=== PATIENT | male | born 1940 | race Caucasian/White ===

== ENCOUNTER → 2021-06-20 | Outpatient (CLI) | payer MEDICARE, OTHER ==
--- NOTE | 2021-06-20 16:14 | Diagnostic Imaging Report ---
PROCEDURE: MR imaging of the brain without contrast. TECHNIQUE: Multiplanar, multisequence MR imaging of the brain was performed without contrast. INDICATION: Memory problems. COMPARISON: None. FINDINGS: No acute ischemia, mass, or hemorrhage. A small amount of chronic microvascular disease is seen in the periventricular and subcortical white matter. The ventricles and cortical sulci are diffusely prominent. The basilar cisterns are symmetric and unremarkable. The sellar and suprasellar regions have a normal appearance. The brainstem and posterior fossa are unremarkable. The paranasal sinuses and mastoid air cells demonstrate normal signal characteristics. Bilateral lens implants are noted. The scalp and calvarium have a normal appearance. IMPRESSION: 1. No acute ischemia, mass, or hemorrhage. 2. Generalized parenchymal volume loss. 3. Small amount of scattered chronic microvascular disease. Dictated by: Dictated on workstation # [id number]
== END ==
LOC: RAD 13:15
PROVIDERS: ATTEND Family Medicine
DX: G31.9 Degenerative disease of nervous system, unspecified (principal)
CPT/HCPCS: 70551

== ENCOUNTER → 2021-10-29 | Outpatient (CLI) | payer MEDICARE, OTHER ==
[2021-10-29 10:05] LABS: CREATININE SERUM 0.99 MG/DL (0.60-1.30); POTASSIUM 3.9 MMOL/L (3.6-5.0)
[2021-10-29 10:06] LABS: BILIRUBIN,TOTAL 0.7 MG/DL (0.1-1.0); CALCIUM 10.3 MG/DL (8.5-10.1)
[2021-10-29 10:07] LABS: TOTAL PROTEIN 6.9 GM/DL (6.4-8.2)
== END ==
LOC: RAD FS 09:21
PROVIDERS: ATTEND Family Medicine
DX: R41.3 Other amnesia (principal)
CPT/HCPCS: 36415; 80053

== ENCOUNTER 2022-07-18 09:30 | Emergency (ER) | payer MEDICARE, OTHER ==
[~2022-07-18] VITALS: Ht 167.7 cm; Wt 77.2 kg
[2022-07-18 09:45] LABS: BASOPHILS # (AUTO) 0.1 10^3/uL (0.0-0.1); BASOPHILS % (AUTO) 1 % (0-10); BILIRUBIN,URINE NEGATIVE (NEGATIVE); CLARITY,URINE CLEAR; COLOR,URINE YELLOW; EOSINOPHILS # (AUTO) 0.1 10^3/uL (0.0-0.3); EOSINOPHILS % (AUTO) 2 % (0-10); GLUCOSE, URINE (UA) NEGATIVE (NEGATIVE); HEMATOCRIT 44 % (40-54); HEMOGLOBIN 15.8 g/dL (13.3-17.7); KETONES,URINE NEGATIVE (NEGATIVE); LEUKOCYTE ESTERASE ,URINE TRACE (NEGATIVE); LYMPHOCYTES # (AUTO) 1.7 10^3/uL (1.0-4.0); LYMPHOCYTES % (AUTO) 24 % (12-44); MEAN CORPUSCULAR HEMOGLOBIN 33 pg (25-34); MEAN CORPUSCULAR HGB CONC 36 g/dL (32-36); MEAN CORPUSCULAR VOLUME 93 fL (80-99); MEAN PLATELET VOLUME 9.5 fL (9.0-12.2); MONOCYTES # (AUTO) 0.6 10^3/uL (0.0-1.0); MONOCYTES % (AUTO) 9 % (0-12); NEUTROPHILS # (AUTO) 4.7 10^3/uL (1.8-7.8); NEUTROPHILS % (AUTO) 65 % (42-75); NITRITE,URINE NEGATIVE (NEGATIVE); PLATELET COUNT 165 10^3/uL (130-400); PROTEIN,URINE NEGATIVE (NEGATIVE); WHITE BLOOD COUNT 7.3 10^3/uL (4.3-11.0)
[2022-07-18 09:54] LABS: BACTERIA,URINE FEW /HPF; RBC,URINE 50-100 /HPF
--- NOTE | 2022-07-18 09:56 | ED GU-Male ---
General Chief Complaint: - Reproductive Stated Complaint: BLOOD IN URINE, RIGHT SIDE PAIN Source: patient, spouse Exam Limitations: no limitations History of Present Illness Date Seen by Provider: Jul 18, 2022 Time Seen by Provider: 09:37 Initial Comments 82-year-old male presenting with his to the emergency department due to concerns for blood in his urine and right-sided abdominal pain. He had woke up at 3 AM and had blood in his urine as well as incontinence of urine. He had pain in the right side and flank. These things have improved since it woke him up at 3 AM. His urine is much more clear now and the pain has resolved. He does have problems with urination but has not had blood with incontinence like this morning before today. He had some burning and discomfort with urination but that has also improved. He denies any history of having problems with his bladder or prostate. The was concerned that he has never had evaluation of his prostate and bladder before today. He did not have fever, chills, chest pain, nausea, vomiting, diarrhea, change in his bowels. he does take Xarelto as a blood thinner. Timing/Duration: this morning Severity/Quality: moderate, sharp Location: right flank Radiation: right flank Activities at Onset: sleep Prior Genitourinary Problems: none Sexual [place] History: not active Associated Symptoms: No diaphoresis; dysuria; No fever/chills; loss of bladder control; No lower back pain, No lumps, No mass, No nausea/vomiting, No nocturia, No polyuria, No swelling, No syncope; urinary frequency Allergies and Home Medications Allergies Coded Allergies: No Known Drug Allergies (Unverified , 07/18/22) Patient Home Medication List Home Medication List Reviewed: Yes Ciprofloxacin HCl (Ciprofloxacin HCl) 250 Mg Tablet, 250 MG PO BID Prescribed by: JOSE SALAZAR on 07/18/22 1005 Hydrocodone/Acetaminophen (Hydrocodone-Acetamin 5-325 mg) 5 Mg-325 Mg Tablet, 1 TAB PO Q4H PRN for PAIN SEVERE Prescribed by: JOSE SALAZAR on 07/18/22 1153 Review of Systems Review of Systems Constitutional: No chills, No dizziness, No fever EENTM: no symptoms reported Respiratory: no symptoms reported Cardiovascular: no symptoms reported Gastrointestinal: see HPI Genitourinary: see HPI Musculoskeletal: no symptoms reported Skin: no symptoms reported Psychiatric/Neurological: No Symptoms Reported Past Tntzrfz-Hpgscz-Qwcmop Hx Patient Social History Tobacco Use?: No Use of E-Cig and/or Vaping dev: No Substance use?: No Alcohol Use?: No Past Medical History Surgery/Hospitalization HX: Dementia, Factor V Leiden Deficiency Physical Exam Vital Signs Vital Signs - First Documented 07/18/22 09:33 Temp 37.1 Pulse 65 Resp 16 B/P (MAP) 149/71 (97) Pulse Ox 98 O2 Delivery Room Air Capillary Refill : Height, Weight, BMI Height: '" Weight: lbs. oz. kg; BMI Method: General Appearance: WD/WN, no apparent distress HEENT: PERRL/EOMI, pharynx normal Neck: non-tender, full range of motion, supple, normal inspection Cardiovascular: normal peripheral pulses, regular rate, rhythm Respiratory: chest non-tender, lungs clear, normal breath sounds Gastrointestinal: normal bowel sounds, non tender, soft, no pulsatile mass Rectal: deferred Back: no CVA tenderness Extremities: normal range of motion, non-tender, normal capillary refill Neurologic/Psychiatric: alert, oriented x 3 Skin: normal color, warm/dry Progress/Results/Core Measures Suspected Sepsis SIRS Temperature: Pulse: Respiratory Rate: Laboratory Tests 07/18/22 09:43: White Blood Count 7.3 Blood Pressure / Mean: Laboratory Tests 07/18/22 09:43: Creatinine 1.27, Platelet Count 165, Total Bilirubin 1.2H Results/Orders Lab Results Laboratory Tests Test 07/18/22 09:43 Range/Units White Blood Count 7.3 4.3-11.0 10^3/uL Red Blood Count 4.73 4.30-5.52 10^6/uL Hemoglobin 15.8 13.3-17.7 g/dL Hematocrit 44 40-54 % Mean Corpuscular Volume 93 80-99 fL Mean Corpuscular Hemoglobin 33 25-34 pg Mean Corpuscular Hemoglobin Concent 36 32-36 g/dL Red Cell Distribution Width 12.9 10.0-14.5 % Platelet Count 165 130-400 10^3/uL Mean Platelet Volume 9.5 9.0-12.2 fL Immature Granulocyte % (Auto) 0 % Neutrophils (%) (Auto) 65 42-75 % Lymphocytes (%) (Auto) 24 12-44 % Monocytes (%) (Auto) 9 0-12 % Eosinophils (%) (Auto) 2 0-10 % Basophils (%) (Auto) 1 0-10 % Neutrophils # (Auto) 4.7 1.8-7.8 10^3/uL Lymphocytes # (Auto) 1.7 1.0-4.0 10^3/uL Monocytes # (Auto) 0.6 0.0-1.0 10^3/uL Eosinophils # (Auto) 0.1 0.0-0.3 10^3/uL Basophils # (Auto) 0.1 0.0-0.1 10^3/uL Immature Granulocyte # (Auto) 0.0 0.0-0.1 10^3/uL Urine Color YELLOW Urine Clarity CLEAR Urine pH 6.0 5-9 Urine Specific [place] 1.020 1.016-1.022 Urine Protein NEGATIVE NEGATIVE Urine Glucose (UA) NEGATIVE NEGATIVE Urine Ketones NEGATIVE NEGATIVE Urine Nitrite NEGATIVE NEGATIVE Urine Bilirubin NEGATIVE NEGATIVE Urine Urobilinogen 0.2 < = 1.0 MG/DL Urine Leukocyte Esterase TRACE H NEGATIVE Urine RBC (Auto) 2+ H NEGATIVE Urine RBC 50-100 H /HPF Urine WBC 5-10 H /HPF Urine Crystals NONE /LPF Urine Bacteria FEW H /HPF Urine Casts NONE /LPF Urine Mucus MODERATE H /LPF Urine Culture Indicated YES Sodium Level 141 135-145 MMOL/L Potassium Level 4.1 3.6-5.0 MMOL/L Chloride Level 105 98-107 MMOL/L Carbon Dioxide Level 27 21-32 MMOL/L Anion Gap 9 5-14 MMOL/L Blood Urea Nitrogen 15 7-18 MG/DL Creatinine 1.27 0.60-1.30 MG/DL Estimat Glomerular Filtration Rate 56 BUN/Creatinine Ratio 12 Glucose Level 107 H 70-105 MG/DL Calcium Level 11.1 H 8.5-10.1 MG/DL Corrected Calcium 11.0 H 8.5-10.1 MG/DL Total Bilirubin 1.2 H 0.1-1.0 MG/DL Aspartate Amino Transf (AST/SGOT) 22 5-34 U/L Alanine Aminotransferase (ALT/SGPT) 12 0-55 U/L Alkaline Phosphatase 81 40-136 U/L Total Protein 7.1 6.4-8.2 GM/DL Albumin 4.1 3.2-4.5 GM/DL Lipase 26 8-78 U/L My Orders Orders - JOSE SALAZAR MD Comprehensive Metabolic Panel (07/18/22 09:40) Lipase (07/18/22 09:40) Ua Culture If Indicated (07/18/22 09:40) Ed Iv/Invasive Line Start (07/18/22 09:40) Cbc With Automated Diff (07/18/22 09:40) Ct Abd/Pelvis Wo(Kidney Stone) (07/18/22 09:49) Urine Culture (07/18/22 09:43) Ceftriaxone 1 Gm Pre-Mix (Rocephin 1 Gm (07/18/22 10:00) Ns Iv 500 Ml (Sodium Chloride 0.9%) (07/18/22 10:00) Strain Urine (07/18/22 10:21) Vital Signs/I&O 07/18/22 07/18/22 09:33 12:06 Temp 37.1 Pulse 65 56 Resp 16 B/P (MAP) 149/71 (97) 174/77 Pulse Ox 98 96 O2 Delivery Room Air Room Air Capillary Refill : Progress Note #1: Progress Note Potential diagnosis of kidney stone, urinary tract infection, pyelonephritis, diverticulitis, colitis, bladder mass, hematuria on Xarelto. Obtain peripheral IV access and draw blood for complete blood count, lipase, comprehensive metabolic profile. Ordered urinalysis to look for signs of infection and hematuria. CT scan of the abdomen and pelvis to look for possible kidney stone or pathology to account for his symptoms. At this point with him not having any pain in the urine getting more clear will defer medications unless he has a change here in the emergency department. If he has recurrent pain will administer Toradol 15 mg IV x1 and normal saline 1 L IV fluid bolus for hydration. Progress Note #2: Time: 09:57 Progress Note Urinalysis shows mild elevation of specific gravity to 1.020 for mild dehydration. He has trace Leukocyte Esterace with bacteria and 5-10 WBC as well as 2+ RBC with 50-100 RBC/hpf. This would go with a urinary tract infection and being on xarelto it will make it easier for him to have hematuria. Will administer Rocephin 1 gm IV for UTI and Normal Saline 500 mL IVF bolus for hydration. Will see what his metabolic profile shows as well as CT scan of abdomen/pelvis without contrast to evaluate for kidney stone. Progress Note #3: Time: 10:13 Progress Note On my personal interpretation of his CT scan of abdomen/pelvis without contrast he has kidney stones in left kidney and hydroureter with distal ureteral stone 5 to 6 mm on right side. Comprehensive metabolic profile shows he does not have elevated Cr to indicate renal failure or insufficiency. Lipase and liver enzymes were not elevated to indicate pancreatitis or acute hepatic injury. Will proceed with antibiotics and encourage fluids to help get stone to pass. Give information about UTI and hematuria. Also provide information for Dr. Barnes, Urologist out of [place]. They could check with pcp and see any Urologist they wish for follow up, especially if he is not having improvement in his symptoms. Send with strainer to have him strain urine at home and see when the stone might pass. He could take Acetaminophen over the counter if needed for pain at home. For severe pain ordered Hydrocodone/Apap 5/325 mg 1 every 4 hours prn severe pain. Progress Note #4: Progress Note Radiologist had reported patient had a 7 mm kidney stone in the distal right ureter with some hydronephrosis and hydroureter. He did have some stones in both kidneys as well. I counseled patient and spouse about findings and results as well as plan to treat with the ciprofloxacin 250 mg twice a day for UTI and plain Tylenol if the pain was not severe but hydrocodone with Tylenol for severe pain. Since he does take the Xarelto he has increased risk of bleeding from the stone as well as infection. Encourage fluids and hydration to help flush out the stone as well as blood. Given information for Dr. Barnes, urologist from [place]. Also advised they could check with PCP and follow-up with urologist of their choice. He should strain all of his urine and his watch for the stone to pass. If he does not see a stone pass or continues to have pain and blood in his urine he should follow-up with urology as soon as possible. Diagnostic Imaging Diagonstic Imaging: CT Plain Films/CT/US/NM/MRI: abdomen, pelvis Comments [facility] [employer] [facility] [place], [place] NAME: JOSEPHINE CASTELLANO [facility] REC#: [id number] PT STATUS: REG ER : 1940 PHYSICIAN: JOSE SALAZAR MD ADMIT DATE: 07/18/22/ER FS Signed Date of Exam:07/18/22 CT ABD/PELVIS WO(KIDNEY STONE) EXAMINATION: CT abdomen and pelvis without contrast. TECHNIQUE: Multiple contiguous axial images were obtained through the abdomen and pelvis without the use of intravenous contrast. All CT scans use one or more of the following dose optimizing techniques: automated exposure control, MA and/or KvP adjustment based on patient size and exam type or iterative reconstruction. HISTORY: hematuria, right flank pain COMPARISON: None available. FINDINGS: Lung bases: Bibasilar dependent atelectasis. Solid organs: The liver is normal. Multiple layering hyperdense stones within the gallbladder. There is no biliary ductal dilation. Pancreas is normal. Spleen is normal. Adrenal glands are normal. There is a 0.7 cm calculus within the distal right ureter resulting in mild right hydronephrosis and hydroureter. Additional nonobstructing left renal calculi measuring up to 0.4 cm. Bowel: The stomach and small bowel are normal without obstruction. There is scattered colonic diverticulosis. The appendix is normal. Peritoneum: There is no intraperitoneal free fluid or free air. No suspicious lymphadenopathy. Vasculature: Calcification of the aorta without aneurysm. Musculoskeletal: Degenerative changes of the spine without suspicious osseous lesion or compression fracture. Pelvis: The prostate gland is enlarged. Mild diffuse bladder wall thickening. IMPRESSION: 1. A 0.7 cm calculus within the distal right ureter resulting in mild right hydronephrosis. 2. Additional nonobstructing renal calculi measuring up to 0.4 cm on the left. 3. Mild diffuse bladder wall thickening. 4. Prostatomegaly. 5. Cholelithiasis. 6. Colonic diverticulosis without findings of diverticulitis. Dictated by: Dictated on workstation # [id number] Dict: 07/18/22 1016 Trans: 07/18/22 1055 [facility] [id number] Interpreted by: YOKO CONNORS DO Electronically signed by: YOKO CONNORS DO 07/18/22 1055 Reviewed: Reviewed by Me (I reviewed the radiologist report at 1119 and agree with his interpretation.) Departure Impression Primary Impression: Renal colic on right side Additional Impressions: Hematuria Qualified Codes: R31.0 - Gross hematuria Acute cystitis with hematuria Kidney stones Disposition: 01 HOME, SELF-CARE Condition: Stable Departure-Patient Inst. Decision time for Depature: 11:51 Referrals: FRANCY PEDRO MD (PCP/Family) Primary Care Physician Patient Instructions: Blood in Urine (Hematuria), Adult ED, Urinary Tract Infection, Adult ED, Flank Pain ED, Kidney Stone, Adult ED, Kidney Stone Diet, How to Strain Your Urine Add. Discharge Instructions: Make sure you are drinking plenty of fluids and staying well hydrated. Try to keep your urine as clear and light colored as possible to help flush out infection. Take the antibiotics to treat for bladder infection. Follow up with primary care provider and if continued problems or more concerns with bladder and urine you may need referred to a Urologist for follow up and further evaluation. If you have worsening symptoms or are not improving then you could see Dr. Barnes, Urologist from [place], [place]. His office is at [address] [place], [place] [id number]. His phone number is [phone]. Take acetaminophen 650 mg every 4 hours as needed for pain. If he is having severe pain he can take the hydrocodone 5 mg with acetaminophen 325 mg pill 1 every 4 hours as needed for severe pain. Strain your urine whenever you go so that you could see when the stone passes. This may look like a small rosa of pepper or grain of sand. All discharge instructions reviewed with patient and/or family. Voiced understanding. Scripts Hydrocodone/Acetaminophen (Hydrocodone-Acetamin 5-325 mg) 5 Mg-325 Mg Tablet 1 TAB PO Q4H PRN for PAIN SEVERE for 3 Days, #18 TAB 0 Refills Prov: JOSE SALAZAR MD 07/18/22 Ciprofloxacin HCl (Ciprofloxacin HCl) 250 Mg Tablet 250 MG PO BID for UTI with hematuria for 5 Days, #10 TAB 0 Refills Prov: JOSE SALAZAR MD 07/18/22 JOSE SALAZAR MD Jul 18, 2022 09:56
[2022-07-18] MEDS ORDERED: NS IV 500 ML 500 ML IV STA (10:00)
[2022-07-18] MEDS ORDERED: cefTRIAXone 1 GM PRE-MIX 50 ML IV STA (10:00)
[2022-07-18] MEDS ORDERED: CIPR250T3 PO (10:05)
[2022-07-18 10:08] LABS: BILIRUBIN,TOTAL 1.2 MG/DL (0.1-1.0); CALCIUM 11.1 MG/DL (8.5-10.1); CREATININE SERUM 1.27 MG/DL (0.60-1.30); POTASSIUM 4.1 MMOL/L (3.6-5.0)
[2022-07-18 10:09] LABS: ALBUMIN 4.1 GM/DL (3.2-4.5); TOTAL PROTEIN 7.1 GM/DL (6.4-8.2)
--- NOTE | 2022-07-18 10:47 | Diagnostic Imaging Report ---
EXAMINATION: CT abdomen and pelvis without contrast. TECHNIQUE: Multiple contiguous axial images were obtained through the abdomen and pelvis without the use of intravenous contrast. All CT scans use one or more of the following dose optimizing techniques: automated exposure control, MA and/or KvP adjustment based on patient size and exam type or iterative reconstruction. HISTORY: hematuria, right flank pain COMPARISON: None available. FINDINGS: Lung bases: Bibasilar dependent atelectasis. Solid organs: The liver is normal. Multiple layering hyperdense stones within the gallbladder. There is no biliary ductal dilation. Pancreas is normal. Spleen is normal. Adrenal glands are normal. There is a 0.7 cm calculus within the distal right ureter resulting in mild right hydronephrosis and hydroureter. Additional nonobstructing left renal calculi measuring up to 0.4 cm. Bowel: The stomach and small bowel are normal without obstruction. There is scattered colonic diverticulosis. The appendix is normal. Peritoneum: There is no intraperitoneal free fluid or free air. No suspicious lymphadenopathy. Vasculature: Calcification of the aorta without aneurysm. Musculoskeletal: Degenerative changes of the spine without suspicious osseous lesion or compression fracture. Pelvis: The prostate gland is enlarged. Mild diffuse bladder wall thickening. IMPRESSION: 1. A 0.7 cm calculus within the distal right ureter resulting in mild right hydronephrosis. 2. Additional nonobstructing renal calculi measuring up to 0.4 cm on the left. 3. Mild diffuse bladder wall thickening. 4. Prostatomegaly. 5. Cholelithiasis. 6. Colonic diverticulosis without findings of diverticulitis. Dictated by: Dictated on workstation # [id number]
[2022-07-18] MEDS ORDERED: ACHD5005 PO (11:52)
[2022-07-18 12:06] VITALS: BP 174/77
== END 2022-07-18 12:06 | disposition home or self-care (01) ==
LOC: EDUNIT# 09:30 → ER FS 09:32
DX: N13.2 Hydronephrosis with renal and ureteral calculous obstruction (principal); N30.01 Acute cystitis with hematuria; E86.0 Dehydration; Z79.01 Long term (current) use of anticoagulants
CPT/HCPCS: 36415; 74176; 80053; 81000; 83690; 85025; 87088

== ENCOUNTER → 2023-05-12 | Outpatient (CLI) | payer MEDICARE, OTHER ==
[~2023-05-12] MED LIST: ACHD5005 PO; CIPR250T3 PO
--- NOTE | 2023-05-12 13:04 | Diagnostic Imaging Report ---
INDICATION: CALCULUS OF KIDNEY COMPARISON: CT dated 07/18/2022 FINDINGS: Single supine radiographic view of the abdomen was obtained and demonstrates nondistended loops of small bowel. There is no large collection of free peritoneal air. Gallstone is noted projecting over the right upper abdominal quadrant. No unexpected radiopaque foreign bodies are seen. Bony structures show no gross acute abnormalities. IMPRESSION: 1. Nonobstructed small bowel gas pattern. 2. Cholelithiasis. Dictated by: Dictated on workstation # [id number]
== END ==
LOC: RAD FS 11:38
PROVIDERS: ATTEND Urology
DX: K80.20 Calculus of gallbladder without cholecystitis without obstruction (principal); Z87.442 Personal history of urinary calculi
CPT/HCPCS: 74018